=== PATIENT | female | born 1945 | race Caucasian/White ===

== ENCOUNTER 2020-10-11 16:39 | Emergency (ER) | payer OTHER ==
[~2020-10-11] VITALS: Ht 154.9 cm; Wt 65.8 kg
[~2020-10-11 16:39] MED LIST: ASPI-1155 PO; BLAC80CA PO; FEXO-61 PO; HYDR25TA4 PO; LIP10 PO; LOSA100T3 PO
[2020-10-11 16:52] VITALS: BP_SYST 115
--- NOTE | 2020-10-11 16:57 | NUR ---
Placed in room H3 . Placed on cctv technician, blood pressure machine and pulse oximeter. To gown for exam. Side rails up.
--- NOTE | 2020-10-11 17:00 | NUR ---
# 20 gauge angiocath placed to RAC. Use of asceptic technique. Opsite placed over site. Blood return noted. Blood for lab drawn from site. Flushed with 10 cc of normal saline. No evidence of infiltration noted. Patient tolerated well.
--- NOTE | 2020-10-11 17:05 | NUR ---
Pt sitting in gurney alert and oritented x4, HR 179, RR of 22, complains of heart palpitations and coughing and sob.
--- NOTE | 2020-10-11 17:32 | NUR ---
ER Dr. Martinez at bedside examining patient.
[2020-10-11] MEDS: NACL 0.9% 1,000 ML IV ONE (17:54)
[2020-10-11] MEDS: ASPIRIN 81 MG TAB.CHEW PO ONE (17:55)
[2020-10-11] MEDS: DILTIAZEM HCL 25 MG/5 ML VIAL IVP ONE (17:56)
[2020-10-11 17:58] LABS: ALANINE AMINOTRANSFERASE 55 U/L (12-78); ALBUMIN 3.6 g/dL (3.4-4.8); ASPARTATE AMINOTRANSFERASE 51 U/L (10-37); CALCIUM 8.5 mg/dL (8.4-11.0); CHLORIDE 91 mmol/L (98-107); CREATININE 1.32 mg/dL (0.55-1.30); GLUCOSE 184 mg/dL (70-99); SODIUM SERUM 129 mmol/L (136-145); TOTAL BILIRUBIN 0.6 mg/dL (0.0-1.0); UREA NITROGEN, BLOOD 21 mg/dL (8-21)
--- NOTE | 2020-10-11 18:01 | NUR ---
Chest xray at bedside. Cardizen administered and current HR 92, bp 124/72. Pt resting comfortibly.
[2020-10-11 18:02] LABS: PROTHROMBIN TIME 10.6 SECS (9.5-12.5)
[2020-10-11 18:03] LABS: BASOPHILS % (AUTO) 0.6 % (0.0-2.0); EOSINOPHILS # (AUTO) 0.2 K/uL (0.0-0.4); EOSINOPHILS % (AUTO) 2.5 % (0.0-4.0); HEMATOCRIT 34.3 % (36-48); HEMOGLOBIN 11.9 g/dL (12.0-16.0); LYMPHOCYTES # (AUTO) 1.3 K/uL (1.0-5.5); LYMPHOCYTES % (AUTO) 19.5 % (20.5-51.5); MEAN CORPUSCULAR HEMOGLOBIN 33 pg (27-31); MEAN CORPUSCULAR HGB CONC 35 % (32-36); MEAN CORPUSCULAR VOLUME 95 fL (79.0-98.0); MONOCYTES # (AUTO) 0.5 K/uL (0.0-1.0); MONOCYTES % (AUTO) 8.1 % (1.7-9.3); NEUTROPHILS # (AUTO) 4.6 K/uL (1.8-7.7); NEUTROPHILS % (AUTO) 69.3 % (40.0-70.0); PLATELET COUNT (AUTO) 181 K/uL (130-430); RED BLOOD CELL COUNT(AUTO) 3.62 MIL/uL (4.2-6.2); RED CELL DISTRIBUTION WIDTH 13.1 % (9.0-15.0); WHITE BLOOD COUNT (AUTO) 6.6 K/uL (4.8-10.8)
[2020-10-11 18:09] LABS: ANION GAP 16 (5-15); POTASSIUM 2.7 mmol/L (3.5-5.1)
[2020-10-11] MEDS ORDERED: LIP20 PO (18:21)
[2020-10-11] MEDS ORDERED: HYDR25TA4 PO (18:21)
[2020-10-11] MEDS ORDERED: OMEP20CA15 PO (18:21)
[2020-10-11] MEDS ORDERED: ASPI-1393 PO (18:21)
[2020-10-11] MEDS ORDERED: LOSA100T3 PO (18:21)
[2020-10-11] MEDS ORDERED: METO25TA3 PO (18:21)
--- NOTE | 2020-10-11 18:28 | NUR ---
Repeat ekg completed.
[2020-10-11] MEDS ORDERED: POTASSIUM CHLORIDE 10 MEQ TAB.PRT.SR ONE (18:34)
[2020-10-11] MEDS: POTASSIUM CHLORIDE 10 MEQ TAB.PRT.SR PO ONE (18:47)
[2020-10-11] MEDS: KCL 20 mEq in 100 mL (PREMIX) 100 ML IV ONE (19:06)
--- NOTE | 2020-10-11 19:18 | NUR ---
received report from PETE Lovelace for continuation of care.
--- NOTE | 2020-10-11 19:20 | NUR ---
report given to Raulito FREEMAN.
--- NOTE | 2020-10-11 19:32 | NUR ---
PATIENT ALERT AND ORIENTEDX4, IV FLUIDS INFUSING AT PRESCRIBED RATE, NO SIGNS OF INFILTRATION. DENIES CHEST PAIN. WILL CONTINUE TO MONITOR.
--- NOTE | 2020-10-11 19:53 | NUR ---
DR. MORRISON AT BEDSIDE TALKING WITH PATIENT.
[2020-10-11] MEDS ORDERED: POTASSIUM CHLORIDE 20 MEQ TAB.PRT.SR ONE (20:32)
[2020-10-11] MEDS: POTASSIUM CHLORIDE 20 MEQ TAB.PRT.SR PO ONE (20:38)
[2020-10-11 20:41] VITALS: BP_SYST 132
--- NOTE | 2020-10-11 20:41 | NUR ---
Patient given written and verbal discharge instructions and verbalizes understanding. ER MD discussed with patient the results and treatment provided. Patient in stable condition. ID arm band removed. IV catheter removed intact and dressing applied, no active bleeding. Rx of POTASSIUM given. Patient educated on pain management and to follow up with PMD. Pain Scale 0/10. Opportunity for questions provided and answered. Medication side effect fact sheet provided.
== END 2020-10-11 20:41 | disposition home or self-care (01) ==
LOC: SED 16:39
DX: I48.0 Paroxysmal atrial fibrillation (principal); I10 Essential (primary) hypertension; E87.6 Hypokalemia; Z79.899 Other long term (current) drug therapy; Z79.82 Long term (current) use of aspirin; Z88.6 Allergy status to analgesic agent
CPT/HCPCS: 36415; 71045; 80053; 83880; 84484; 85025; 85610; 85730; 93005; 96361; 96365; 96375; 99285; J3480; J7030

== ENCOUNTER 2023-05-22 20:10 | Observation (INO) | payer OTHER ==
[~2023-05-22] VITALS: Ht 149.9 cm; Wt 72.6 kg
[~2023-05-22 20:10] MED LIST changes: +ASPI-1393 PO; +FEXO-272 PO; -FEXO-61 PO; +LIP20 PO; -LOSA100T3 PO; +LOSA100T4 PO; +METO25TA3 PO; +OMEP20CA15 PO
[2023-05-22 20:19] VITALS: BP_SYST 170; PULSE 98; RESP 16; TEMP 97.9; O2SAT 97
[2023-05-22] MEDS ORDERED: ASPIRIN 81 MG TAB.CHEW PO ONE (20:30)
[2023-05-22] MEDS ORDERED: NITROGLYCERIN 1 INCH (GM) OINT. TD ONE (20:30)
[2023-05-22] MEDS ORDERED: NITROGLYCERIN 0.4 MG TAB.SUBL SL ONE (20:45)
[2023-05-22 21:10] LABS: BASOPHILS % (AUTO) 0.7 % (0.0-2.0); EOSINOPHILS # (AUTO) 0.2 K/uL (0.0-0.4); EOSINOPHILS % (AUTO) 2.6 % (0.0-4.0); HEMATOCRIT 35.9 % (36-48); HEMOGLOBIN 11.8 g/dL (12.0-16.0); LYMPHOCYTES # (AUTO) 2.1 K/uL (1.0-5.5); LYMPHOCYTES % (AUTO) 30.9 % (20.5-51.5); MEAN CORPUSCULAR HEMOGLOBIN 32 pg (27-31); MEAN CORPUSCULAR HGB CONC 33 % (32-36); MEAN CORPUSCULAR VOLUME 98 fL (79.0-98.0); MONOCYTES # (AUTO) 0.7 K/uL (0.0-1.0); MONOCYTES % (AUTO) 10.7 % (1.7-9.3); NEUTROPHILS # (AUTO) 3.7 K/uL (1.8-7.7); NEUTROPHILS % (AUTO) 55.1 % (40.0-70.0); PLATELET COUNT (AUTO) 209 K/uL (130-430); RED BLOOD CELL COUNT(AUTO) 3.68 MIL/uL (4.2-6.2); RED CELL DISTRIBUTION WIDTH 13.6 % (9.0-15.0); WHITE BLOOD COUNT (AUTO) 6.7 K/uL (4.8-10.8)
[2023-05-22 21:19] LABS: ANION GAP 15 (5-15); CALCIUM 8.7 mg/dL (8.4-11.0); CARBON DIOXIDE 21 mmol/L (23-29); CHLORIDE 100 mmol/L (98-107); CREATININE 1.58 mg/dL (0.55-1.30); GLUCOSE 95 mg/dL (74-106); SODIUM SERUM 136 mmol/L (136-145); UREA NITROGEN, BLOOD 48 mg/dL (8-21)
[2023-05-22 21:26] LABS: ALANINE AMINOTRANSFERASE 24 U/L (12-78); ALBUMIN 4.1 g/dL (3.4-4.8); ASPARTATE AMINOTRANSFERASE 22 U/L (10-37); TOTAL BILIRUBIN 0.5 mg/dL (0.0-1.0); TOTAL PROTEIN, SERUM 7.6 g/dL (6.4-8.3)
[2023-05-22] MEDS ORDERED: POTASSIUM CHLORIDE 20 MEQ/PKT PACKET PO ONE (22:45)
[2023-05-22] MEDS ORDERED: VITA-285 PO (23:05)
[2023-05-22] MEDS ORDERED: ZYRTEC PO (23:05)
[2023-05-22] MEDS ORDERED: APIX5TAB4 PO (23:05)
[2023-05-22] MEDS ORDERED: MULT-1117 PO (23:05)
[2023-05-23] VITALS (8 sets, daily range): BP systolic 125–152; PULSE 68–85; RESP 18–20; TEMP 97.7–98.4; O2SAT 95–100
[2023-05-23] MEDS ORDERED: ACETAMINOPHEN 500 MG TABLET PO PRN (03:15)
[2023-05-23] MEDS ORDERED: LOSARTAN POTASSIUM 50 MG TABLET (COZAAR) PO SCH (09:00)
[2023-05-23] MEDS ORDERED: METOPROLOL SUCCINATE 50 MG TAB.SR.24H (TOPROL XL) PO SCH (09:00)
[2023-05-23] MEDS ORDERED: MULTIVITAMINS TAB 1 TABLET PO SCH (09:00)
[2023-05-23] MEDS ORDERED: HYDROCHLOROTHIAZIDE 25 MG TABLET (HCTZ) PO SCH (09:00)
[2023-05-23] MEDS ORDERED: ATORVASTATIN 20 MG TABLET PO SCH (09:00)
[2023-05-23 16:20] LABS: ANION GAP 11 (5-15); CALCIUM 8.9 mg/dL (8.4-11.0); CARBON DIOXIDE 25 mmol/L (23-29); CHLORIDE 103 mmol/L (98-107); CREATININE 1.29 mg/dL (0.55-1.30); GLUCOSE 93 mg/dL (74-106); POTASSIUM 3.7 mmol/L (3.5-5.1); SODIUM SERUM 139 mmol/L (136-145); UREA NITROGEN, BLOOD 34 mg/dL (8-21)
[2023-05-23 16:25] LABS: ALANINE AMINOTRANSFERASE 22 U/L (12-78); ALBUMIN 3.9 g/dL (3.4-4.8); ASPARTATE AMINOTRANSFERASE 21 U/L (10-37); TOTAL BILIRUBIN 0.8 mg/dL (0.0-1.0); TOTAL PROTEIN, SERUM 7.5 g/dL (6.4-8.3)
[2023-05-24] MEDS ORDERED: PANTOPRAZOLE SODIUM 40 MG TAB PO SCH (09:00)
[2023-05-24] MEDS ORDERED: OMEPRAZOLE Non-Formulary 20 MG CAPSULE.DR PO SCH (09:00)
== END 2023-05-23 19:00 | disposition home or self-care (01) ==
LOC: SED 20:10 → STU 23:18
PROVIDERS: ADMIT Specialist; ATTEND Specialist
DX: R07.89 Other chest pain (principal); I12.9 Hypertensive chronic kidney disease with stage 1 through stage 4 chronic kidney disease, or unspecified chronic kidney disease; N18.30 Chronic kidney disease, stage 3 unspecified; I48.0 Paroxysmal atrial fibrillation; E87.6 Hypokalemia; R79.89 Other specified abnormal findings of blood chemistry; I71.40 Abdominal aortic aneurysm, without rupture, unspecified; M19.90 Unspecified osteoarthritis, unspecified site; I72.8 Aneurysm of other specified arteries; E66.01 Morbid (severe) obesity due to excess calories; E78.5 Hyperlipidemia, unspecified; Z79.899 Other long term (current) drug therapy; Z79.01 Long term (current) use of anticoagulants; Z85.828 Personal history of other malignant neoplasm of skin; Z87.891 Personal history of nicotine dependence
CPT/HCPCS: 80053 ×2; 83880; 85025; 84484 ×2; 36415 ×2; 93005; 71045; 71250; 76376 ×2; 99285; 93306; 72125; 76770; G0378 ×2